=== PATIENT | male | born 2000 | race Caucasian/White ===

== ENCOUNTER 2021-01-26 20:26 | Emergency (ER) | payer BC ==
--- NOTE | 2021-01-26 21:11 | CR ---
[id number] RAD/RAD Fingers Right EXAM: RAD Fingers Right CLINICAL DATA: TRAUMA COMPARISON: No previous similar exam is available. FINDINGS: No fracture or dislocation is seen. There is no radiopaque foreign body in the soft tissues. There is no air in the soft tissues. There is no cortical thickening or periosteal reaction either. IMPRESSION: NEGATIVE PLAIN FILM EXAM. Ramin Talavera MD 01/26/21 [id number] Thank you for allowing us to participate in the care of your patient.
--- NOTE | 2021-01-26 22:22 | EDM.PDOC ---
ED HPI GENERAL MEDICAL PROBLEM - General Chief Complaint: Upper Extremity Injury/Pain Stated Complaint: SWOLLEN FINGER Time Seen by Provider: 01/26/21 20:41 Source of Information: Reports: Patient History Limitations: Reports: No Limitations - History of Present Illness INITIAL COMMENTS - FREE TEXT/NARRATIVE: Pt. presents to ER with complaints of injury to R middle finger sustained yesterday. Pt. states that the injury happened while playing basketball. Denies injury elsewhere. He is concerned because the digit is swollen and still painful. Denies any numbness/tingling to the distal portion of the digit. Onset: Today Treatments ACUTE CARE ASSISTANT: Reports: NSAIDS Right Middle Finger Pain Score (Numeric/FACES): 6 - Related Data Allergies Allergy/AdvReac Type Severity Reaction Status Date / Time No Known Allergies Allergy Verified 01/26/21 20:40 Home Meds: Home Meds . [No Known Home Meds] 01/26/21 [History] Review of Systems - Review of Systems Review Of Systems: Comprehensive ROS is negative, except as noted in HPI. ED EXAM, GENERAL - Physical Exam Exam: See Below Extremities: Joint Swelling (swelling/discomfort to PIP of 3rd digit of R hand. No obvious crepitus or deformity noted. ) Course - Vital Signs Last Recorded V/S: Last Vital Signs Temp 37.0 C 01/26/21 20:43 Pulse 77 01/26/21 20:43 Resp 16 01/26/21 20:43 BP 126/66 01/26/21 20:43 Pulse Ox 99 01/26/21 20:43 - Radiology Interpretation Free Text/Narrative:: radiographs of the R middle finger obtained and were negative for acute fracture. Departure - Departure Time of Disposition: 23:35 Disposition: Home, Self-Care 01 Clinical Impression: Jammed interphalangeal joint of finger of right hand - Discharge Information Instructions: Finger Sprain, Adult, [id number] Referrals: PCP,None [Primary Care Provider] - Forms: ED Department Discharge Additional Instructions: Home to rest. Ibuprofen 200mg 3 tabs every 6 hours as needed for pain Recheck in clinic in7-10 days if not gradually improving. Sepsis Event Note (ED) - Evaluation Sepsis Screening Result: No Definite Risk - Problem List Review Problem List Initiated/Reviewed/Updated: Yes - Assessment/Plan Plan: Home to rest. Ibuprofen 200mg 3 tabs every 6 hours as needed for pain Recheck in clinic in7-10 days if not gradually improving.
== END 2021-01-26 21:10 | disposition home or self-care (01) ==
LOC: SUPCPDRO 20:26 → VM.ED 20:26
DX: S67.192A Crushing injury of right middle finger, initial encounter (principal); W23.0XXA Caught, crushed, jammed, or pinched between moving objects, initial encounter; Y93.67 Activity, basketball
CPT/HCPCS: 73140-F7; 99283; 99283-25